=== PATIENT | male | born 1995 | race Hispanic/Latino ===

== ENCOUNTER 2018-01-15 00:17 | Emergency (ER) | payer OTHER ==
[2018-01-15] MEDS: NS 1,000 ML IV ×2 (00:48→02:45)
[2018-01-15 00:57] LABS: BASO % 0.3 % (0.0-1.0); EOS % 0.6 % (0.0-3.0); HEMATOCRIT 40.4 % (42.0-52.0); HEMOGLOBIN 13.5 g/dl (13.5-17.5); IMMATURE GRANULOCYTE % 0.2 % (0-3.0); LYMPH # 1.9 10^3/uL (1.5-6.5); MEAN CORPUSCULAR HEMOGLOBIN 32.2 pg (27.0-33.0); MEAN CORPUSCULAR HGB CONC 33.4 g/dl (32.0-36.5); MEAN CORPUSCULAR VOLUME 96.4 fl (80.0-96.0); MONO # 0.3 10^3/uL (0.0-0.8); MONO % 5.3 % (0.0-5.0); NEUTROPHILS # 4.2 10^3/uL (1.8-7.7); NEUTROPHILS % 64.6 % (36.0-66.0); PLATELET COUNT, AUTOMATED 213 10^3/uL (150-450); RED BLOOD COUNT 4.19 10^6/uL (4.30-6.10); RED CELL DISTRIBUTION WIDTH 11.8 % (11.5-14.5); WHITE BLOOD COUNT 6.4 10^3/uL (4.0-10.0)
[2018-01-15 01:19] LABS: ALBUMIN 3.8 GM/DL (3.2-5.2); ALBUMIN/GLOBULIN RATIO 1.23 (1.00-1.93); ALKALINE PHOSPHATASE 72 U/L (45-117); ALT/SGPT 18 U/L (12-78); ANION GAP 6 MEQ/L (8-16); AST/SGOT 15 U/L (7-37); BILIRUBIN,DIRECT 0.1 MG/DL (0.0-0.2); BILIRUBIN,TOTAL 0.4 MG/DL (0.2-1.0); BLOOD UREA NITROGEN 15 MG/DL (7-18); CALCIUM LEVEL 8.1 MG/DL (8.5-10.1); CARBON DIOXIDE LEVEL 28 MEQ/L (21-32); CHLORIDE LEVEL 108 MEQ/L (98-107); CREATININE FOR GFR 1.04 MG/DL (0.70-1.30); ETHYL ALCOHOL (ETHANOL) 0.228 % (0.000-0.010); GLOMERULAR FILTRATION RATE > 60.0 (>60); GLUCOSE, FASTING 87 MG/DL (70-100); LIPASE 135 U/L (73-393); POTASSIUM SERUM 4.1 MEQ/L (3.5-5.1); SODIUM LEVEL 142 MEQ/L (136-145); TOTAL PROTEIN 6.9 GM/DL (6.4-8.2)
[2018-01-15] MEDS: ONDANSETRON 4MG/2ML VIAL (J2405) IV (02:29)
== END 2018-01-15 03:14 | disposition home or self-care (01) ==
LOC: M ED 00:17
DX: F10.929 Alcohol use, unspecified with intoxication, unspecified (principal)
CPT/HCPCS: J2405

== ENCOUNTER 2018-02-21 10:52 | Emergency (ER) | payer OTHER | END 2018-02-21 14:49 | disposition home or self-care (01) | LOC: M ED 10:52 | DX: N45.1 Epididymitis (principal); K40.90 Unilateral inguinal hernia, without obstruction or gangrene, not specified as recurrent; K65.4 Sclerosing mesenteritis; R10.30 Lower abdominal pain, unspecified; R11.0 Nausea; Z87.891 Personal history of nicotine dependence | CPT/HCPCS: 76870 ==

== ENCOUNTER 2018-03-21 09:00 | Day surgery (SDC) | payer OTHER ==
[2018-03-21] MEDS ORDERED: fentaNYL 250 MCG/5 ML INJECTION (J3010) As Ordered (09:03)
[2018-03-21] MEDS ORDERED: ONDANSETRON 4MG/2ML VIAL (J2405) As Ordered ×2 (09:03→12:40)
[2018-03-21] MEDS ORDERED: ROCURONIUM BROMIDE 50 MG/5 ML VIAL As Ordered (09:03)
[2018-03-21] MEDS ORDERED: LIDOCAINE 2% INJ 100 MG/5 ML SDV (FOR ANES.) As Ordered (09:03)
[2018-03-21] MEDS ORDERED: dexameTHASONE 4 MG/ML 1ML VIAL (J1100) As Ordered (09:03)
[2018-03-21] MEDS ORDERED: PROPOFOL 200 MG/20 ML VIAL As Ordered (09:03)
[2018-03-21] MEDS ORDERED: MIDAZOLAM INJ 2 MG/2 ML VIAL (J2250) As Ordered (09:04)
[2018-03-21] MEDS ORDERED: LIDOCAINE 1% MDV 20ML VIAL SQ (09:15)
[2018-03-21] MEDS: LR 1,000 ML IV (10:14)
[2018-03-21] MEDS ORDERED: HYDROmorphone HCL 2 MG/ML 1ML VIAL (J1170) As Ordered (12:35)
[2018-03-21] MEDS ORDERED: KETOROLAC 60 MG/2 ML VIAL (J1885) As Ordered (12:40)
[2018-03-21] MEDS ORDERED: NEOSTIGMINE 10 MG/10 ML VIAL (J2710) As Ordered (12:40)
[2018-03-21] MEDS ORDERED: GLYCOPYRROLATE INJ 0.2 MG/ML 2 ML VIAL As Ordered (12:40)
[2018-03-21] MEDS: BUPIVACAINE HCL 0.25% 30 ML VIAL As Ordered (13:35)
[2018-03-21] MEDS: LIDOCAINE 1% SDV INJ 30 ML VIAL As Ordered (13:35)
[2018-03-21] MEDS ORDERED: NORCO, ANEXSIA 5/325MG TABLET (HYDROcodone/ACETAMINOPHEN) PO ×2 (14:00→14:15)
[2018-03-21] MEDS ORDERED: ONDANSETRON 4MG/2ML VIAL (J2405) IV ×2 (14:00→14:15)
[2018-03-21] MEDS: NORCO, ANEXSIA 5/325MG TABLET (HYDROcodone/ACETAMINOPHEN) PO (14:07)
[2018-03-21] MEDS ORDERED: LR 1,000 ML IV (14:15)
[2018-03-21] MEDS ORDERED: fentaNYL 100 MCG/2 ML INJECTION (J3010) IV (14:15)
[2018-03-21] MEDS ORDERED: KETOROLAC 30 MG/ML VIAL (J1885) IV (18:30)
== END 2018-03-21 16:44 | disposition home or self-care (01) ==
LOC: M SDC 09:00
DX: K40.90 Unilateral inguinal hernia, without obstruction or gangrene, not specified as recurrent (principal); D17.6 Benign lipomatous neoplasm of spermatic cord; F17.210 Nicotine dependence, cigarettes, uncomplicated; Z79.899 Other long term (current) drug therapy
CPT/HCPCS: 49650